=== PATIENT | male | born 1940 | race Caucasian/White ===

== ENCOUNTER 2022-01-18 16:00 | Inpatient (IN) | payer OTHER, BC ==
[2022-01-18 16:20] VITALS: BMI 28.3
[2022-01-18] MEDS ORDERED: SODIUM CHLORIDE 2,926 ML IV ONE (16:44)
[2022-01-18] MEDS ORDERED: VANCOMYCIN 1 GM in D5W (PRE-DOCKED) 1,000 MG/250 ML IVPB ONE (16:48)
[2022-01-18] MEDS ORDERED: PIPERACILLIN/TAZOB 3.375 GM 3.375 GM in DEXTROSE 5%-WATER - 50 ML IVPB ONE (16:48)
[2022-01-18] MEDS ORDERED: ACETAMINOPHEN 1000 MG/100 ML BAG IVPB ONE (16:57)
[2022-01-18] MEDS ORDERED: ACETAMINOPHEN INJECTION 100 ML IVPB ONE (17:59)
[2022-01-18 18:03] LABS: VENOUS BASE EXCESS -6.5 mmol/L (-2-2); VENOUS O2 SATURATION 36.4 % (70-80); VENOUS PCO2 39.7 mmHg (38-52); VENOUS PH 7.305 (7.310-7.410)
[2022-01-18 18:09] LABS: BASO % 0.6 % (0-2.0); EOS % 0.2 % (0-4.5); HEMOGLOBIN 11.5 GM/dL (11.7-16.9); LYMPH % 4.8 % (8-40); MCH 33.4 pg (25.7-33.7); MCHC 33.7 g/dl (32.0-35.9); MEAN PLT VOLUME 8.3 fl (7.5-11.1); MONO % 7.1 % (3.8-10.2); NEUT % 87.3 % (42.8-82.8); PLATELET COUNT 123 10^3/uL (134-434); RBC 3.43 M/mm3 (4.00-5.60); RDW 13.9 % (11.9-15.9); WHITE BLOOD COUNT 7.2 K/mm3 (4.0-10.0)
[2022-01-18] MEDS ORDERED: VANCOMYCIN/WATER FOR INJ (PEG) 1,000 MG/200 ML BAG IVPB ONE (18:10)
[2022-01-18] MEDS ORDERED: PIPERACILLIN/TAZOB 3.375 GM 3.375 GM/50 ML BAG IVPB ONE (18:11)
[2022-01-18 18:16] LABS: INR 1.29 (0.83-1.09); PROTHROMBIN TIME (PATIENT) 14.9 SEC (9.7-13.0)
[2022-01-18 18:19] LABS: ACTIVATED PTT 26.8 SECONDS (25.2-36.5)
[2022-01-18 18:29] LABS: CHLORIDE 110 mmol/L (98-107); SODIUM 142 mmol/L (136-145)
[2022-01-18 18:31] LABS: CALCIUM 8.7 mg/dL (8.5-10.1)
[2022-01-18 18:33] LABS: ALBUMIN 3.2 g/dl (3.4-5.0); ANION GAP 9 MMOL/L (8-16); BLOOD UREA NITROGEN 29.8 mg/dL (7-18); CO2 23 mmol/L (21-32); GLUCOSE,RANDOM 127 mg/dL (74-106)
[2022-01-18 18:36] LABS: CREATININE 2.5 mg/dL (0.55-1.3); SGOT/AST 94 U/L (15-37); SGPT/ALT 53 U/L (13-61)
[2022-01-18 18:37] LABS: BILIRUBIN,TOTAL 1.9 mg/dL (0.2-1)
[2022-01-18 18:38] LABS: TOT PROT 6.5 g/dl (6.4-8.2)
[2022-01-18 18:39] LABS: ALK PHOS 123 U/L (45-117)
[2022-01-18 18:48] LABS: LACTIC ACID 3.5 mmol/L (0.4-2.0)
[2022-01-18 20:08] LABS: LACTIC ACID 2.3 mmol/L (0.4-2.0)
[2022-01-18] MEDS ORDERED: NOREPINEPHRINE BITARTRATE 16,000 MCG in SODIUM CHLORIDE 484 ML IV SCH (20:45)
[2022-01-18] MEDS ORDERED: HEPARIN NA (PORCINE) 5,000 UNITS/ML 1ML VIAL IVPUSH PRN ×2 (23:22)
[2022-01-18] MEDS ORDERED: ASPIRIN 81 MG CHEWABLE TABLETS PO ONE (23:24)
[2022-01-18] MEDS ORDERED: ASPIRIN 325 MG TABLET ONE (23:43)
[2022-01-18] MEDS ORDERED: HEPARIN INFUSION - 25,000 UNITS/500 ML INFUS.BAG IVPB ONE (23:43)
[2022-01-18] MEDS: HEPARIN - 25,000 UNIT in SODIUM CHLORIDE 495 ML IV SCH (23:54)
[2022-01-19 00:14] LABS: EPI CELLS 9 /uL (0-25.1); HYALINE CASTS 6 /uL (0-3.1); URINE APPEARANCE TURBID; URINE BACTERIA 4 /uL (0-1359); URINE BILIRUBIN NEGATIVE (NEGATIVE); URINE COLOR DK YELLOW; URINE GLUCOSE (UA) 2+ (NEGATIVE); URINE KETONE TRACE (NEGATIVE); URINE LEUK ESTERASE TRACE (NEGATIVE); URINE NITRITE NEGATIVE (NEGATIVE); URINE PROTEIN 2+ (NEGATIVE); URINE UROBILINOGEN 0.2 mg/dL (0.2-1.0); URINE WBC 44 /uL (0-25.8)
[2022-01-19 00:15] LABS: URINE RBC 15 /uL (0-23.9)
[2022-01-19] MEDS ORDERED: REMDESIVIR 200 MG in SODIUM CHLORIDE 250 ML IVPB ONE (03:37)
[2022-01-19] MEDS ORDERED: PIPERACILLIN/TAZOB 3.375 GM 3.375 GM in DEXTROSE 5%-WATER - 50 ML IVPB SCH ×2 (04:00→05:00)
[2022-01-19] MEDS ORDERED: PIPERACILLIN/TAZOB 3.375 GM 3.375 GM/50 ML BAG IVPB ONE ×2 (04:22→09:02)
[2022-01-19] MEDS ORDERED: PIPERACILLIN/TAZOB 3.375 GM 3.375 GM in DEXTROSE 5%-WATER - 50 ML IVPB ONE ×2 (07:15→12:15)
[2022-01-19] MEDS ORDERED: PATIENT'S OWN MEDICATION (NON-FORMULARY) (Cyanocobalamin/Folic Acid [B12-Folic Acid 2500-4 PO SCH (07:30)
[2022-01-19] MEDS: INSULIN SLIDING SCALE (NOVOLOG) 1 VIAL SQ SCH ×4 (07:30→22:27)
[2022-01-19] MEDS ORDERED: PATIENT'S OWN MEDICATION (NON-FORMULARY) (Denosumab 60 MG/ML Disp.Syrin) SQ SCH (07:30)
[2022-01-19 08:11] LABS: HEMATOCRIT 32.2 % (35.4-49); HEMOGLOBIN 10.7 GM/dL (11.7-16.9); MCH 32.9 pg (25.7-33.7); MCHC 33.3 g/dl (32.0-35.9); MEAN PLT VOLUME 8.4 fl (7.5-11.1); PLATELET COUNT 109 10^3/uL (134-434); RBC 3.26 M/mm3 (4.00-5.60); RDW 13.8 % (11.9-15.9); WHITE BLOOD COUNT 5.1 K/mm3 (4.0-10.0)
[2022-01-19] MEDS ORDERED: LEVOTHYROXINE NA 50 MCG TABLET (FP) PO SCH (08:15)
[2022-01-19 08:25] LABS: CALCIUM 7.9 mg/dL (8.5-10.1)
[2022-01-19 08:26] LABS: ALBUMIN 2.8 g/dl (3.4-5.0); BLOOD UREA NITROGEN 33.4 mg/dL (7-18); MAGNESIUM 2.2 mg/dL (1.8-2.4)
[2022-01-19 08:29] LABS: PHOSPHOROUS 4.3 mg/dL (2.5-4.9)
[2022-01-19 08:30] LABS: BILIRUBIN,TOTAL 1.5 mg/dL (0.2-1); CREATININE 2.7 mg/dL (0.55-1.3); TOT PROT 5.7 g/dl (6.4-8.2)
[2022-01-19] MEDS ORDERED: FOLIC ACID 1 MG TABLET (FP) ONE (08:58)
[2022-01-19] MEDS ORDERED: ASPIRIN 81 MG CHEWABLE TABLETS ONE (08:58)
[2022-01-19] MEDS ORDERED: THIAMINE HCL 100 MG TABLET (FP) ONE (08:58)
[2022-01-19] MEDS ORDERED: MULTIVITAMINS (DAILY MVI) TABLET (FP) ONE (08:59)
[2022-01-19] MEDS ORDERED: DULoxetine HCL 30 MG CAPSULE.DR PO ONE (08:59)
[2022-01-19] MEDS ORDERED: LEVOTHYROXINE NA 50 MCG TABLET (FP) ONE (08:59)
[2022-01-19] MEDS ORDERED: VANCOMYCIN/WATER 1250 MG 1,250 MG/250 ML BAG IVPB ONE (09:00)
[2022-01-19] MEDS ORDERED: DHA PO SCH (10:00)
[2022-01-19] MEDS ORDERED: LUT PO SCH (10:00)
[2022-01-19] MEDS ORDERED: ZEA PO SCH (10:00)
[2022-01-19] MEDS ORDERED: EPA PO SCH (10:00)
[2022-01-19] MEDS ORDERED: [UNRECOGNIZED DRUG - OTHER] PO SCH (10:00)
[2022-01-19] MEDS ORDERED: ATORVASTATIN CA 40 MG TABLET (FP) PO SCH (10:00)
[2022-01-19] MEDS ORDERED: MV MN PO SCH (10:00)
[2022-01-19] MEDS ORDERED: VANCOMYCIN/WATER 1,250 MG/250 ML BAG IVPB ONE ×2 (10:00→22:00)
[2022-01-19] MEDS ORDERED: FISH PO SCH (10:00)
[2022-01-19] MEDS ORDERED: THIAMINE HCL 100 MG TABLET (FP) PO SCH (10:00)
[2022-01-19] MEDS ORDERED: PATIENT'S OWN MEDICATION (NON-FORMULARY) (Dapagliflozin Propanediol 5 MG Tablet) PO SCH (10:00)
[2022-01-19] MEDS ORDERED: CHOLECALCIFEROL (VIT D3) 1,000 UNIT (25 MCG) TABLET ONE (10:20)
[2022-01-19] MEDS: MULTIVITAMINS (DAILY MVI) TABLET (FP) PO SCH (10:38)
[2022-01-19] MEDS: CHOLECALCIFEROL (VIT D3) 1,000 UNIT (25 MCG) TABLET PO SCH (10:38)
[2022-01-19] MEDS: FOLIC ACID 1 MG TABLET (FP) PO SCH (10:38)
[2022-01-19] MEDS: DULoxetine HCL 30 MG CAPSULE.DR PO SCH (10:38)
[2022-01-19] MEDS: PRAMIPEXOLE DIHYDROCHLORIDE 0.5 MG TABLET PO SCH (10:38)
[2022-01-19] MEDS: ASPIRIN 81 MG CHEWABLE TABLETS PO SCH (10:38)
[2022-01-19] MEDS ORDERED: LORazepam 1 MG TABLET PO PRN (11:24)
[2022-01-19] MEDS ORDERED: THIAMINE HCL 200 MG/2 ML VIAL ONE (11:58)
[2022-01-19] MEDS: KETOCONAZOLE 2% TOPICAL CREAM 15 GM TUBE TP SCH (12:03)
[2022-01-19] MEDS: THIAMINE HCL 200 MG/2 ML VIAL IVPB SCH (12:17)
[2022-01-19] MEDS ORDERED: LACTATED RINGERS SOLUTION 1,000 ML/1,000 ML INFUS.BAG IV SCH (14:30)
[2022-01-19 14:45] LABS: RETICULOCYTES 1.17 % (0.5-1.5)
[2022-01-19] MEDS ORDERED: REPAGLINIDE 0.5 MG TABLET (FP) PO SCH (16:30)
[2022-01-19] MEDS ORDERED: SODIUM CHLORIDE 0.45% 1,000 ML IV SCH (17:15)
[2022-01-19] MEDS ORDERED: ATORVASTATIN CA 10 MG TABLET (FP) PO SCH (22:00)
[2022-01-19] MEDS: PIPERACILLIN/TAZOB 3.375 GM 3.375 GM in DEXTROSE 5%-WATER - 50 ML IVPB SCH (22:05)
[2022-01-19] MEDS: OMEGA-3 ACID ETHYL ESTERS (FATTY-ACIDS) 1 GM CAPSULE (FP) PO SCH (22:16)
[2022-01-19] MEDS: MOMETASONE FUROATE 220 MCG/IH INHALER IH SCH (22:47)
[2022-01-20] MEDS: PIPERACILLIN/TAZOB 3.375 GM 3.375 GM in DEXTROSE 5%-WATER - 50 ML IVPB SCH ×2 (02:10→10:16)
[2022-01-20] MEDS: HEPARIN - 25,000 UNIT in SODIUM CHLORIDE 495 ML IV SCH (05:34)
[2022-01-20 06:15] LABS: HEMATOCRIT 31.4 % (35.4-49); HEMOGLOBIN 10.6 GM/dL (11.7-16.9); MCH 33.2 pg (25.7-33.7); MCHC 33.7 g/dl (32.0-35.9); MEAN CELL VOLUME 98.6 fl (80-96); MEAN PLT VOLUME 8.6 fl (7.5-11.1); PLATELET COUNT 117 10^3/uL (134-434); RBC 3.19 M/mm3 (4.00-5.60); RDW 14.1 % (11.9-15.9); WHITE BLOOD COUNT 4.5 K/mm3 (4.0-10.0)
[2022-01-20] MEDS: INSULIN SLIDING SCALE (NOVOLOG) 1 VIAL SQ SCH ×4 (06:17→21:01)
[2022-01-20] MEDS: LEVOTHYROXINE NA 75 MCG TABLET (FP) PO SCH (06:18)
[2022-01-20 08:01] LABS: ALBUMIN 2.4 g/dl (3.4-5.0); BILIRUBIN,TOTAL 0.8 mg/dL (0.2-1); BLOOD UREA NITROGEN 36.9 mg/dL (7-18); CALCIUM 7.9 mg/dL (8.5-10.1); CREATININE 2.7 mg/dL (0.55-1.3); MAGNESIUM 2.1 mg/dL (1.8-2.4); PHOSPHOROUS 4.2 mg/dL (2.5-4.9); TOT PROT 5.2 g/dl (6.4-8.2)
[2022-01-20] MEDS: DULoxetine HCL 30 MG CAPSULE.DR PO SCH (10:17)
[2022-01-20] MEDS: CHOLECALCIFEROL (VIT D3) 1,000 UNIT (25 MCG) TABLET PO SCH (10:17)
[2022-01-20] MEDS: MULTIVITAMINS (DAILY MVI) TABLET (FP) PO SCH (10:17)
[2022-01-20] MEDS: ASPIRIN 81 MG CHEWABLE TABLETS PO SCH (10:18)
[2022-01-20] MEDS: FOLIC ACID 1 MG TABLET (FP) PO SCH (10:18)
[2022-01-20] MEDS: PRAMIPEXOLE DIHYDROCHLORIDE 0.5 MG TABLET PO SCH (10:18)
[2022-01-20] MEDS: KETOCONAZOLE 2% TOPICAL CREAM 15 GM TUBE TP SCH (10:18)
[2022-01-20] MEDS: THIAMINE HCL 200 MG/2 ML VIAL IVPB SCH (10:19)
[2022-01-20] MEDS: FLUTICASONE PROP 0.05% 16 GM NASAL SPRAY NS SCH (11:56)
[2022-01-20] MEDS: LACTATED RINGERS SOLUTION 1,000 ML/1,000 ML INFUS.BAG IV SCH ×2 (17:44→21:02)
[2022-01-20] MEDS: PIPERACILLIN/TAZOB 2.25 GM 2.25 GM in DEXTROSE 5%-WATER - 50 ML IVPB SCH (20:54)
[2022-01-20] MEDS: OMEGA-3 ACID ETHYL ESTERS (FATTY-ACIDS) 1 GM CAPSULE (FP) PO SCH (21:01)
[2022-01-20] MEDS: MOMETASONE FUROATE 220 MCG/IH INHALER IH SCH (21:01)
[2022-01-21] MEDS: PIPERACILLIN/TAZOB 2.25 GM 2.25 GM in DEXTROSE 5%-WATER - 50 ML IVPB SCH ×2 (02:28→09:20)
[2022-01-21] MEDS: HEPARIN - 25,000 UNIT in SODIUM CHLORIDE 495 ML IV SCH ×3 (02:28→23:30)
[2022-01-21] MEDS: INSULIN SLIDING SCALE (NOVOLOG) 1 VIAL SQ SCH ×4 (06:27→21:55)
[2022-01-21] MEDS: LEVOTHYROXINE NA 75 MCG TABLET (FP) PO SCH (06:27)
[2022-01-21 07:40] LABS: HEMATOCRIT 29.7 % (35.4-49); MCH 33.1 pg (25.7-33.7); MCHC 33.8 g/dl (32.0-35.9); MEAN CELL VOLUME 98.1 fl (80-96); MEAN PLT VOLUME 8.5 fl (7.5-11.1); PLATELET COUNT 119 10^3/uL (134-434); RBC 3.03 M/mm3 (4.00-5.60); RDW 14.1 % (11.9-15.9); WHITE BLOOD COUNT 3.4 K/mm3 (4.0-10.0)
[2022-01-21 08:02] LABS: CALCIUM 7.6 mg/dL (8.5-10.1)
[2022-01-21 08:03] LABS: ALBUMIN 2.2 g/dl (3.4-5.0); BLOOD UREA NITROGEN 34.3 mg/dL (7-18)
[2022-01-21 08:06] LABS: CREATININE 2.6 mg/dL (0.55-1.3)
[2022-01-21 08:08] LABS: BILIRUBIN,TOTAL 0.9 mg/dL (0.2-1); TOT PROT 4.8 g/dl (6.4-8.2)
[2022-01-21] MEDS: CHOLECALCIFEROL (VIT D3) 1,000 UNIT (25 MCG) TABLET PO SCH (09:20)
[2022-01-21] MEDS: ASPIRIN 81 MG CHEWABLE TABLETS PO SCH (09:20)
[2022-01-21] MEDS: DULoxetine HCL 30 MG CAPSULE.DR PO SCH (09:20)
[2022-01-21] MEDS: MULTIVITAMINS (DAILY MVI) TABLET (FP) PO SCH (09:20)
[2022-01-21] MEDS: FOLIC ACID 1 MG TABLET (FP) PO SCH (09:21)
[2022-01-21] MEDS: PRAMIPEXOLE DIHYDROCHLORIDE 0.5 MG TABLET PO SCH (09:21)
[2022-01-21] MEDS: FLUTICASONE PROP 0.05% 16 GM NASAL SPRAY NS SCH (09:35)
[2022-01-21] MEDS: KETOCONAZOLE 2% TOPICAL CREAM 15 GM TUBE TP SCH (10:40)
[2022-01-21] MEDS: THIAMINE HCL 200 MG/2 ML VIAL IVPB SCH (12:26)
[2022-01-21] MEDS: LACTATED RINGERS SOLUTION 1,000 ML/1,000 ML INFUS.BAG IV SCH (13:44)
[2022-01-21] MEDS: MOMETASONE FUROATE 220 MCG/IH INHALER IH SCH (21:54)
[2022-01-21] MEDS: CEFUROXIME AXETIL 250 MG TABLET PO SCH (21:54)
[2022-01-21] MEDS: OMEGA-3 ACID ETHYL ESTERS (FATTY-ACIDS) 1 GM CAPSULE (FP) PO SCH (21:55)
[2022-01-22] MEDS: LEVOTHYROXINE NA 75 MCG TABLET (FP) PO SCH (06:23)
[2022-01-22] MEDS: INSULIN SLIDING SCALE (NOVOLOG) 1 VIAL SQ SCH ×4 (06:23→21:31)
[2022-01-22] MEDS: ASPIRIN 81 MG CHEWABLE TABLETS PO SCH (09:23)
[2022-01-22] MEDS: CHOLECALCIFEROL (VIT D3) 1,000 UNIT (25 MCG) TABLET PO SCH (09:23)
[2022-01-22] MEDS: FOLIC ACID 1 MG TABLET (FP) PO SCH (09:23)
[2022-01-22] MEDS: MULTIVITAMINS (DAILY MVI) TABLET (FP) PO SCH (09:23)
[2022-01-22] MEDS: DULoxetine HCL 30 MG CAPSULE.DR PO SCH (09:23)
[2022-01-22] MEDS: THIAMINE HCL 200 MG/2 ML VIAL IVPB SCH (09:24)
[2022-01-22] MEDS: KETOCONAZOLE 2% TOPICAL CREAM 15 GM TUBE TP SCH (09:25)
[2022-01-22] MEDS: FLUTICASONE PROP 0.05% 16 GM NASAL SPRAY NS SCH (09:26)
[2022-01-22] MEDS: PRAMIPEXOLE DIHYDROCHLORIDE 0.5 MG TABLET PO SCH (09:26)
[2022-01-22] MEDS: CEFUROXIME AXETIL 250 MG TABLET PO SCH ×2 (09:27→21:20)
[2022-01-22 10:42] LABS: HEMATOCRIT 29.5 % (35.4-49); MCH 33.2 pg (25.7-33.7); MCHC 33.7 g/dl (32.0-35.9); MEAN CELL VOLUME 98.4 fl (80-96); PLATELET COUNT 131 10^3/uL (134-434); RDW 13.8 % (11.9-15.9); WHITE BLOOD COUNT 3.7 K/mm3 (4.0-10.0)
[2022-01-22 11:07] LABS: BLOOD UREA NITROGEN 29.3 mg/dL (7-18); CALCIUM 8.1 mg/dL (8.5-10.1)
[2022-01-22 11:10] LABS: CREATININE 2.4 mg/dL (0.55-1.3)
[2022-01-22] MEDS: LACTATED RINGERS SOLUTION 1,000 ML/1,000 ML INFUS.BAG IV SCH (15:26)
[2022-01-22] MEDS: HEPARIN NA (PORCINE) 5,000 UNITS/ML 1ML VIAL SQ SCH ×2 (15:26→21:20)
[2022-01-22] MEDS: MOMETASONE FUROATE 220 MCG/IH INHALER IH SCH (21:20)
[2022-01-22] MEDS: OMEGA-3 ACID ETHYL ESTERS (FATTY-ACIDS) 1 GM CAPSULE (FP) PO SCH (21:20)
[2022-01-23] MEDS: HEPARIN NA (PORCINE) 5,000 UNITS/ML 1ML VIAL SQ SCH ×3 (06:27→21:37)
[2022-01-23] MEDS: LEVOTHYROXINE NA 75 MCG TABLET (FP) PO SCH (06:28)
[2022-01-23] MEDS: INSULIN SLIDING SCALE (NOVOLOG) 1 VIAL SQ SCH ×4 (06:33→21:43)
[2022-01-23 07:32] LABS: HEMATOCRIT 29.1 % (35.4-49); HEMOGLOBIN 9.8 GM/dL (11.7-16.9); MCH 33.3 pg (25.7-33.7); MCHC 33.8 g/dl (32.0-35.9); MEAN CELL VOLUME 98.5 fl (80-96); MEAN PLT VOLUME 8.2 fl (7.5-11.1); PLATELET COUNT 138 10^3/uL (134-434); RBC 2.95 M/mm3 (4.00-5.60); RDW 13.8 % (11.9-15.9); WHITE BLOOD COUNT 3.9 K/mm3 (4.0-10.0)
[2022-01-23 07:59] LABS: ALBUMIN 2.1 g/dl (3.4-5.0); BLOOD UREA NITROGEN 28.8 mg/dL (7-18); CALCIUM 8.2 mg/dL (8.5-10.1); MAGNESIUM 1.8 mg/dL (1.8-2.4)
[2022-01-23 08:02] LABS: CREATININE 2.1 mg/dL (0.55-1.3); PHOSPHOROUS 3.5 mg/dL (2.5-4.9)
[2022-01-23 08:03] LABS: TOT PROT 4.8 g/dl (6.4-8.2)
[2022-01-23] MEDS: CHOLECALCIFEROL (VIT D3) 1,000 UNIT (25 MCG) TABLET PO SCH (10:19)
[2022-01-23] MEDS: DULoxetine HCL 30 MG CAPSULE.DR PO SCH (10:19)
[2022-01-23] MEDS: MULTIVITAMINS (DAILY MVI) TABLET (FP) PO SCH (10:20)
[2022-01-23] MEDS: ASPIRIN 81 MG CHEWABLE TABLETS PO SCH (10:20)
[2022-01-23] MEDS: FOLIC ACID 1 MG TABLET (FP) PO SCH (10:20)
[2022-01-23] MEDS: PRAMIPEXOLE DIHYDROCHLORIDE 0.5 MG TABLET PO SCH (10:20)
[2022-01-23] MEDS: CEFUROXIME AXETIL 250 MG TABLET PO SCH ×2 (10:20→21:37)
[2022-01-23] MEDS: THIAMINE HCL 200 MG/2 ML VIAL IVPB SCH (10:27)
[2022-01-23] MEDS: FLUTICASONE PROP 0.05% 16 GM NASAL SPRAY NS SCH (10:27)
[2022-01-23] MEDS: KETOCONAZOLE 2% TOPICAL CREAM 15 GM TUBE TP SCH (10:27)
[2022-01-23] MEDS: SODIUM CHLORIDE 0.45% 1,000 ML IV SCH (13:43)
[2022-01-23] MEDS: OMEGA-3 ACID ETHYL ESTERS (FATTY-ACIDS) 1 GM CAPSULE (FP) PO SCH (21:37)
[2022-01-23] MEDS: MOMETASONE FUROATE 220 MCG/IH INHALER IH SCH (21:37)
[2022-01-24] MEDS: SODIUM CHLORIDE 0.45% 1,000 ML IV SCH ×2 (03:32→17:21)
[2022-01-24] MEDS: HEPARIN NA (PORCINE) 5,000 UNITS/ML 1ML VIAL SQ SCH ×3 (06:03→21:48)
[2022-01-24] MEDS: LEVOTHYROXINE NA 75 MCG TABLET (FP) PO SCH (06:03)
[2022-01-24] MEDS: INSULIN SLIDING SCALE (NOVOLOG) 1 VIAL SQ SCH ×4 (06:03→21:48)
[2022-01-24 09:30] LABS: HEMATOCRIT 29.8 % (35.4-49); HEMOGLOBIN 10.2 GM/dL (11.7-16.9); MCH 33.6 pg (25.7-33.7); MCHC 34.2 g/dl (32.0-35.9); MEAN CELL VOLUME 98.3 fl (80-96); MEAN PLT VOLUME 7.9 fl (7.5-11.1); PLATELET COUNT 153 10^3/uL (134-434); RBC 3.03 M/mm3 (4.00-5.60); RDW 13.9 % (11.9-15.9); WHITE BLOOD COUNT 4.3 K/mm3 (4.0-10.0)
[2022-01-24] MEDS: ASPIRIN 81 MG CHEWABLE TABLETS PO SCH (09:45)
[2022-01-24] MEDS: DULoxetine HCL 30 MG CAPSULE.DR PO SCH (09:45)
[2022-01-24] MEDS: MULTIVITAMINS (DAILY MVI) TABLET (FP) PO SCH (09:45)
[2022-01-24] MEDS: CEFUROXIME AXETIL 250 MG TABLET PO SCH ×2 (09:45→21:48)
[2022-01-24] MEDS: CHOLECALCIFEROL (VIT D3) 1,000 UNIT (25 MCG) TABLET PO SCH (09:45)
[2022-01-24] MEDS: THIAMINE HCL 200 MG/2 ML VIAL IVPB SCH (09:46)
[2022-01-24] MEDS: FOLIC ACID 1 MG TABLET (FP) PO SCH (09:46)
[2022-01-24] MEDS: PRAMIPEXOLE DIHYDROCHLORIDE 0.5 MG TABLET PO SCH (09:48)
[2022-01-24] MEDS: FLUTICASONE PROP 0.05% 16 GM NASAL SPRAY NS SCH (09:50)
[2022-01-24 10:21] LABS: CALCIUM 8.6 mg/dL (8.5-10.1)
[2022-01-24 10:22] LABS: ALBUMIN 2.4 g/dl (3.4-5.0); BLOOD UREA NITROGEN 23.4 mg/dL (7-18); MAGNESIUM 1.6 mg/dL (1.8-2.4)
[2022-01-24 10:23] LABS: BILIRUBIN,TOTAL 1.1 mg/dL (0.2-1); TOT PROT 5.5 g/dl (6.4-8.2)
[2022-01-24 10:25] LABS: CREATININE 1.9 mg/dL (0.55-1.3)
[2022-01-24] MEDS: KETOCONAZOLE 2% TOPICAL CREAM 15 GM TUBE TP SCH (10:40)
[2022-01-24] MEDS ORDERED: MAGNESIUM SULF 50% (8.12 MEQ/2 ML-1 GM VIAL) IVPB ONE (16:17)
[2022-01-24] MEDS ORDERED: MAGNESIUM 2GM/50ML STERILE WATER IVPB IVPB ONE ×2 (16:32→17:00)
[2022-01-24] MEDS: OMEGA-3 ACID ETHYL ESTERS (FATTY-ACIDS) 1 GM CAPSULE (FP) PO SCH (21:49)
[2022-01-24] MEDS: MOMETASONE FUROATE 220 MCG/IH INHALER IH SCH (21:49)
[2022-01-25] MEDS: HEPARIN NA (PORCINE) 5,000 UNITS/ML 1ML VIAL SQ SCH (06:40)
[2022-01-25] MEDS: LEVOTHYROXINE NA 75 MCG TABLET (FP) PO SCH (06:41)
[2022-01-25] MEDS: INSULIN SLIDING SCALE (NOVOLOG) 1 VIAL SQ SCH (06:41)
[2022-01-25 07:05] VITALS: RESP 16
[2022-01-25 08:28] LABS: HEMATOCRIT 29.4 % (35.4-49); HEMOGLOBIN 10.2 GM/dL (11.7-16.9); MCH 33.8 pg (25.7-33.7); MCHC 34.6 g/dl (32.0-35.9); MEAN CELL VOLUME 97.5 fl (80-96); MEAN PLT VOLUME 7.7 fl (7.5-11.1); PLATELET COUNT 173 10^3/uL (134-434); RBC 3.02 M/mm3 (4.00-5.60); RDW 13.9 % (11.9-15.9); WHITE BLOOD COUNT 4.4 K/mm3 (4.0-10.0)
[2022-01-25 08:53] LABS: CALCIUM 8.6 mg/dL (8.5-10.1)
[2022-01-25 08:54] LABS: ALBUMIN 2.5 g/dl (3.4-5.0); BLOOD UREA NITROGEN 22.1 mg/dL (7-18)
[2022-01-25 08:55] LABS: MAGNESIUM 1.9 mg/dL (1.8-2.4)
[2022-01-25 08:57] LABS: CREATININE 1.8 mg/dL (0.55-1.3); PHOSPHOROUS 3.1 mg/dL (2.5-4.9)
[2022-01-25 08:58] LABS: BILIRUBIN,TOTAL 1.2 mg/dL (0.2-1)
[2022-01-25 08:59] LABS: TOT PROT 5.6 g/dl (6.4-8.2)
[2022-01-25] MEDS: CEFUROXIME AXETIL 250 MG TABLET PO SCH (09:11)
[2022-01-25] MEDS: DULoxetine HCL 30 MG CAPSULE.DR PO SCH (09:12)
[2022-01-25] MEDS: FOLIC ACID 1 MG TABLET (FP) PO SCH (09:12)
[2022-01-25] MEDS: MULTIVITAMINS (DAILY MVI) TABLET (FP) PO SCH (09:12)
[2022-01-25] MEDS: CHOLECALCIFEROL (VIT D3) 1,000 UNIT (25 MCG) TABLET PO SCH (09:12)
[2022-01-25] MEDS: THIAMINE HCL 200 MG/2 ML VIAL IVPB SCH ×2 (09:13→09:25)
[2022-01-25] MEDS: KETOCONAZOLE 2% TOPICAL CREAM 15 GM TUBE TP SCH (09:13)
[2022-01-25] MEDS: PRAMIPEXOLE DIHYDROCHLORIDE 0.5 MG TABLET PO SCH (09:13)
[2022-01-25] MEDS: FLUTICASONE PROP 0.05% 16 GM NASAL SPRAY NS SCH (09:14)
[2022-01-25] MEDS: ASPIRIN 81 MG CHEWABLE TABLETS PO SCH (09:15)
[2022-01-25 11:06] VITALS: BP 138/70; PULSE 83; TEMP 98
== END 2022-01-25 13:23 | disposition home or self-care (01) | DRG 871 ==
LOC: JER 16:00 → JERBED 16:56 → J4S 01-19 19:55
PROVIDERS: ADMIT Hospitalist; ATTEND Internal Medicine
PROC: XW033E5 Introduction of Remdesivir Anti-infective into Peripheral Vein, Percutaneous Approach, New Technology Group 5 (ICD-10-PCS; principal; 2022-01-19)
DX: A41.89 Other specified sepsis (principal); I21.4 Non-ST elevation (NSTEMI) myocardial infarction; R65.21 Severe sepsis with septic shock; U07.1 COVID-19; J12.82 Pneumonia due to coronavirus disease 2019; M62.82 Rhabdomyolysis; E87.2 Acidosis; N17.9 Acute kidney failure, unspecified; E78.5 Hyperlipidemia, unspecified; I10 Essential (primary) hypertension; E03.9 Hypothyroidism, unspecified; E11.9 Type 2 diabetes mellitus without complications; D64.9 Anemia, unspecified; R79.89 Other specified abnormal findings of blood chemistry; G25.81 Restless legs syndrome; J32.8 Other chronic sinusitis; I95.9 Hypotension, unspecified; R00.0 Tachycardia, unspecified; R50.9 Fever, unspecified; W18.39XA Other fall on same level, initial encounter; Y92.89 Other specified places as the place of occurrence of the external cause
CPT/HCPCS: 0241U-QW; 36415; 71045-TC-FY; 76705-TC; 80048; 80053; 80061; 81003; 82272; 82550; 82553; 82570; 82607; 82728; 82746; 82803; 82962; 83036; 83540; 83550; 83605; 83615; 83735; 84100; 84300; 84439; 84443; 84466; 84484; 85025; 85027; 85045; 85610; 85730; 86140; 86850; 86900; 86901; 87040; 87086; 93005; 93010; 93306-TC; 97116-GP; 97161-GP; 99285-25; C9399; C9803-CS; J1644; U0003; U0005

== ENCOUNTER 2023-08-28 13:29 | Inpatient (IN) | payer OTHER, BC ==
[2023-08-28] MEDS ORDERED: PIPERACILLIN/TAZOB 4.5 GM 4.5 GM/100 ML BAG IVPB ONE (14:52)
[2023-08-28] MEDS ORDERED: ACETAMINOPHEN INJECTION 100 ML IVPB ONE (14:52)
[2023-08-28 14:53] LABS: BASO % 0.7 % (0-2.0); EOS % 3.8 % (0-4.5); HEMATOCRIT 33.3 % (35.4-49); HEMOGLOBIN 10.9 GM/dL (11.7-16.9); LYMPH % 12.6 % (8-40); MCH 33.5 pg (25.7-33.7); MCHC 32.8 g/dl (32.0-35.9); MEAN CELL VOLUME 102.2 fl (80-96); MEAN PLT VOLUME 7.3 fl (7.5-11.1); MONO % 9.9 % (3.8-10.2); PLATELET COUNT 162 10^3/uL (134-434); RBC 3.25 M/mm3 (4.00-5.60); RDW 13.5 % (11.9-15.9); WHITE BLOOD COUNT 5.7 K/mm3 (4.0-10.0)
[2023-08-28] MEDS: PIPERACILLIN/TAZOB 4.5 GM 4.5 GM in DEXTROSE 5%-WATER 100 ML IVPB ONE (14:59)
[2023-08-28 15:21] LABS: POTASSIUM 4.9 mmol/L (3.5-5.1)
[2023-08-28 15:23] LABS: CALCIUM 8.9 mg/dL (8.5-10.1)
[2023-08-28 15:25] LABS: ALBUMIN 2.9 g/dl (3.4-5.0); BLOOD UREA NITROGEN 54.9 mg/dL (7-18)
[2023-08-28 15:27] LABS: CREATININE 2.2 mg/dL (0.55-1.3)
[2023-08-28 15:29] LABS: TOT PROT 6.2 g/dl (6.4-8.2)
[2023-08-28] MEDS: ACETAMINOPHEN 1000 MG/100 ML BAG IVPB ONE (15:39)
[2023-08-28 15:41] LABS: ERYTHROCYTE SEDIMENTATION RATE 92 mm/hr (0-20)
[2023-08-28] MEDS ORDERED: VANCOMYCIN 1 GRAM (PRE-DOCKED) 1,000 MG/250 ML BAG IVPB ONE (16:00)
[2023-08-28] MEDS: VANCOMYCIN 1,000 MG in DEXTROSE 5%-WATER - 250 ML IVPB ONE (16:07)
[2023-08-28] MEDS: INSULIN ASPART SLIDING SCALE (NOVOLOG) 1 VIAL SQ SCH (19:40)
[2023-08-28] MEDS: ACETAMINOPHEN 500 MG TABLET (FP) PO PRN (22:59)
[2023-08-28] MEDS: HEPARIN NA (PORCINE) 5,000 UNITS/ML 1ML VIAL SQ SCH (23:00)
[2023-08-29] MEDS: VANCOMYCIN/WATER FOR INJ (PEG) 1,000 MG/200 ML BAG IVPB SCH (04:16)
[2023-08-29] MEDS ORDERED: VANCOMYCIN 1,000 MG in DEXTROSE 5%-WATER - 250 ML IVPB SCH ×2 (06:00→15:00)
[2023-08-29 09:32] LABS: BASO % 0.9 % (0-2.0); HEMATOCRIT 36.1 % (35.4-49); HEMOGLOBIN 11.8 GM/dL (11.7-16.9); LYMPH % 14.7 % (8-40); MCH 33.2 pg (25.7-33.7); MCHC 32.7 g/dl (32.0-35.9); MEAN CELL VOLUME 101.5 fl (80-96); MEAN PLT VOLUME 7.5 fl (7.5-11.1); MONO % 6.5 % (3.8-10.2); NEUT % 72.9 % (42.8-82.8); PLATELET COUNT 186 10^3/uL (134-434); RBC 3.56 M/mm3 (4.00-5.60); RDW 13.4 % (11.9-15.9); WHITE BLOOD COUNT 5.3 K/mm3 (4.0-10.0)
[2023-08-29 10:14] LABS: POTASSIUM 4.8 mmol/L (3.5-5.1)
[2023-08-29 10:31] LABS: CALCIUM 8.6 mg/dL (8.5-10.1)
[2023-08-29 10:32] LABS: BLOOD UREA NITROGEN 47.8 mg/dL (7-18)
[2023-08-29 10:35] LABS: CREATININE 2.2 mg/dL (0.55-1.3)
[2023-08-29 10:46] LABS: N-TERMINAL BNP 303.1 pg/ml (5-450)
[2023-08-29] MEDS: FUROSEMIDE 40 MG/4 ML INJECTABLE VIAL IVPUSH SCH (11:17)
[2023-08-29] MEDS: PIPERACILLIN/TAZOB 2.25 GM 2.25 GM in DEXTROSE 5%-WATER - 50 ML IVPB SCH (12:20)
[2023-08-29] MEDS: INSULIN ASPART SLIDING SCALE (NOVOLOG) 1 VIAL SQ SCH (16:50)
[2023-08-29] MEDS: DOXYCYCLINE HYCLATE 100 MG CAPSULE PO SCH (18:41)
[2023-08-29] MEDS: PRAMIPEXOLE DIHYDROCHLORIDE 0.5 MG TABLET PO SCH (21:29)
[2023-08-29] MEDS: ATORVASTATIN CA 20 MG TABLET (FP) PO SCH (21:29)
[2023-08-29] MEDS: GABAPENTIN 300 MG CAPSULE PO SCH (21:29)
[2023-08-30] MEDS: LEVOTHYROXINE NA 75 MCG TABLET (FP) PO SCH (06:44)
[2023-08-30 07:54] LABS: HEMATOCRIT 32.4 % (35.4-49); MCH 34.3 pg (25.7-33.7); MCHC 34.1 g/dl (32.0-35.9); MEAN CELL VOLUME 100.7 fl (80-96); MEAN PLT VOLUME 7.4 fl (7.5-11.1); PLATELET COUNT 162 10^3/uL (134-434); RBC 3.22 M/mm3 (4.00-5.60); RDW 13.4 % (11.9-15.9); WHITE BLOOD COUNT 4.6 K/mm3 (4.0-10.0)
[2023-08-30 08:26] LABS: POTASSIUM 4.8 mmol/L (3.5-5.1)
[2023-08-30 08:28] LABS: CALCIUM 8.1 mg/dL (8.5-10.1)
[2023-08-30 08:29] LABS: ALBUMIN 2.7 g/dl (3.4-5.0); BLOOD UREA NITROGEN 49.9 mg/dL (7-18)
[2023-08-30 08:32] LABS: CREATININE 2.4 mg/dL (0.55-1.3); PHOSPHOROUS 3.5 mg/dL (2.5-4.9)
[2023-08-30 08:33] LABS: BILIRUBIN,TOTAL 1.3 mg/dL (0.2-1); TOT PROT 5.9 g/dl (6.4-8.2)
[2023-08-30] MEDS: EMPAGLIFLOZIN (JARDIANCE) 10 MG TABLET PO SCH (11:46)
[2023-08-30 15:57] VITALS: BMI 29.2
[2023-08-30] MEDS: AMINO ACIDS/PROTEIN HYDROLYS 30 ML LIQUID.PKT PO SCH (17:08)
[2023-08-30 20:56] VITALS: RESP 18
[2023-08-30] MEDS: ASCORBIC ACID 500 MG TABLET (FP) PO SCH (21:46)
[2023-08-31 09:56] LABS: HEMATOCRIT 37.1 % (35.4-49); HEMOGLOBIN 12.2 GM/dL (11.7-16.9); MCH 33.3 pg (25.7-33.7); MCHC 32.8 g/dl (32.0-35.9); MEAN CELL VOLUME 101.4 fl (80-96); MEAN PLT VOLUME 7.6 fl (7.5-11.1); PLATELET COUNT 181 10^3/uL (134-434); RBC 3.65 M/mm3 (4.00-5.60); RDW 13.4 % (11.9-15.9); WHITE BLOOD COUNT 5.9 K/mm3 (4.0-10.0)
[2023-08-31] MEDS ORDERED: metoPROLOL SUCCINATE 25 MG TAB.SR.24H (FP) PO SCH (10:00)
[2023-08-31] MEDS: BACITRACIN ZINC 15 GM TUBE TOPICAL OINTMENT TP SCH (10:08)
[2023-08-31] MEDS: MULTIVITAMINS (DAILY MVI) TABLET (FP) PO SCH (10:09)
[2023-08-31] MEDS: LOSARTAN POTASSIUM 25 MG TABLET PO SCH (10:09)
[2023-08-31 10:11] LABS: POTASSIUM 4.3 mmol/L (3.5-5.1)
[2023-08-31 10:13] LABS: CALCIUM 8.3 mg/dL (8.5-10.1)
[2023-08-31 10:14] LABS: ALBUMIN 3.2 g/dl (3.4-5.0); BLOOD UREA NITROGEN 53.4 mg/dL (7-18); MAGNESIUM 2.2 mg/dL (1.8-2.4)
[2023-08-31 10:17] LABS: CREATININE 2.7 mg/dL (0.55-1.3); PHOSPHOROUS 3.9 mg/dL (2.5-4.9)
[2023-08-31 10:18] LABS: BILIRUBIN,TOTAL 1.4 mg/dL (0.2-1)
[2023-08-31 10:19] LABS: TOT PROT 6.6 g/dl (6.4-8.2)
[2023-08-31] MEDS: metoPROLOL SUCCINATE 25 MG TAB.SR.24H (FP) PO SCH (11:35)
[2023-08-31] MEDS: DAPTOMYCIN 500 MG in SODIUM CHLORIDE 50 ML IVPB SCH (13:09)
[2023-09-01 09:42] LABS: HEMATOCRIT 38.3 % (35.4-49); HEMOGLOBIN 12.3 GM/dL (11.7-16.9); MCH 32.9 pg (25.7-33.7); MCHC 32.2 g/dl (32.0-35.9); MEAN CELL VOLUME 102.3 fl (80-96); MEAN PLT VOLUME 7.6 fl (7.5-11.1); PLATELET COUNT 171 10^3/uL (134-434); RBC 3.74 M/mm3 (4.00-5.60); RDW 13.6 % (11.9-15.9); WHITE BLOOD COUNT 4.8 K/mm3 (4.0-10.0)
[2023-09-01 09:46] LABS: POTASSIUM 4.4 mmol/L (3.5-5.1)
[2023-09-01 10:03] LABS: CALCIUM 8.3 mg/dL (8.5-10.1)
[2023-09-01 10:04] LABS: BLOOD UREA NITROGEN 56.4 mg/dL (7-18); MAGNESIUM 2.3 mg/dL (1.8-2.4)
[2023-09-01 10:07] LABS: CREATININE 2.3 mg/dL (0.55-1.3); PHOSPHOROUS 3.9 mg/dL (2.5-4.9)
[2023-09-01 10:09] LABS: BILIRUBIN,TOTAL 1.1 mg/dL (0.2-1)
[2023-09-01 10:10] LABS: TOT PROT 6.4 g/dl (6.4-8.2)
[2023-09-03 05:09] VITALS: TEMP 97.6
[2023-09-03 08:50] VITALS: BP 121/58; PULSE 86
== END 2023-09-03 15:24 | disposition home or self-care (01) | DRG 603 ==
LOC: JER 13:29 → JERBED 16:57 → J6S 20:57
PROVIDERS: ADMIT Internal Medicine; ATTEND Internal Medicine
DX: L03.116 Cellulitis of left lower limb (principal); E11.22 Type 2 diabetes mellitus with diabetic chronic kidney disease; I12.9 Hypertensive chronic kidney disease with stage 1 through stage 4 chronic kidney disease, or unspecified chronic kidney disease; N18.30 Chronic kidney disease, stage 3 unspecified; G25.81 Restless legs syndrome; E78.5 Hyperlipidemia, unspecified
CPT/HCPCS: 36415; 73562-TC-LT-FY; 73590-TC-LT-FY; 73610-TC-LT-FY; 73630-TC-LT; 80048; 80053; 82550; 82962; 83735; 83880; 84100; 85025; 85027; 85651; 86140; 87040; 87070; 87186; 87205; 93005; 93010; 99285-25; J0131; J0878; J1644

== ENCOUNTER 2024-04-25 12:38 | Inpatient (IN) | payer OTHER, BC ==
[2024-04-25 13:09] VITALS: RESP 18; BMI 29.0
[2024-04-25 15:05] LABS: HEMATOCRIT 35.4 % (35.4-49); HEMOGLOBIN 11.9 GM/dL (11.7-16.9); MCH 33.4 pg (25.7-33.7); MCHC 33.5 g/dl (32.0-35.9); MEAN CELL VOLUME 99.7 fl (80-96); MEAN PLT VOLUME 7.6 fl (7.5-11.1); PLATELET COUNT 130 10^3/uL (134-434); RBC 3.55 M/mm3 (4.00-5.60); RDW 14.2 % (11.9-15.9); WHITE BLOOD COUNT 5.9 K/mm3 (4.0-10.0)
[2024-04-25 15:20] LABS: INR 1.07 (0.83-1.09); PROTHROMBIN TIME (PATIENT) 12.1 SEC (9.7-13.0)
[2024-04-25 15:23] LABS: ACTIVATED PTT 29.9 SECONDS (25.2-36.5)
[2024-04-25 15:38] LABS: POTASSIUM 5.1 mmol/L (3.5-5.1)
[2024-04-25 15:40] LABS: ALBUMIN 3.4 g/dl (3.4-5.0); CALCIUM 8.6 mg/dL (8.5-10.1)
[2024-04-25 15:41] LABS: BLOOD UREA NITROGEN 37.8 mg/dL (7-18)
[2024-04-25 15:44] LABS: CREATININE 2.5 mg/dL (0.55-1.3)
[2024-04-25 15:45] LABS: BILIRUBIN,TOTAL 1.5 mg/dL (0.2-1); TOT PROT 6.4 g/dl (6.4-8.2)
[2024-04-25 15:46] LABS: ERYTHROCYTE SEDIMENTATION RATE 33 mm/hr (0-20)
[2024-04-25] MEDS ORDERED: ACETAMINOPHEN INJECTION 100 ML ONE (16:28)
[2024-04-25] MEDS ORDERED: CEFTRIAXONE 1 GM/50 ML BAG ONE (16:29)
[2024-04-25] MEDS ORDERED: VANCOMYCIN 1 GRAM (PRE-DOCKED) 1,000 MG/250 ML BAG IVPB ONE (16:29)
[2024-04-25 16:33] LABS: HIV INTERPRETATION NEGATIVE (NEGATIVE)
[2024-04-25] MEDS: ACETAMINOPHEN 1000 MG/100 ML BAG IVPB ONE (16:39)
[2024-04-25] MEDS: CEFTRIAXONE 1 GM in DEXTROSE 5%-WATER - 50 ML IVPB ONE (16:40)
[2024-04-25] MEDS: VANCOMYCIN 1,000 MG in DEXTROSE 5%-WATER - 250 ML IVPB ONE (17:06)
[2024-04-25] MEDS ORDERED: APIXABAN 5 MG TABLET ONE (21:52)
[2024-04-25] MEDS ORDERED: ATORVASTATIN CA 20 MG TABLET (FP) ONE (21:52)
[2024-04-25] MEDS ORDERED: HEPARIN NA (PORCINE) 5,000 UNITS/ML 1ML VIAL ONE (21:53)
[2024-04-25] MEDS ORDERED: GABAPENTIN 300 MG CAPSULE ONE (21:53)
[2024-04-25] MEDS ORDERED: HEPARIN NA (PORCINE) 5,000 UNITS/ML 1ML VIAL SQ SCH (22:00)
[2024-04-25] MEDS ORDERED: APIXABAN 5 MG TABLET PO SCH (22:00)
[2024-04-25] MEDS ORDERED: ACETAMINOPHEN 325 MG TABLET (FP) PO PRN (22:03)
[2024-04-25] MEDS: GABAPENTIN 300 MG CAPSULE PO SCH (22:05)
[2024-04-25] MEDS: ATORVASTATIN CA 20 MG TABLET (FP) PO SCH (22:05)
[2024-04-25] MEDS: APIXABAN 5 MG TABLET PO SCH (22:05)
[2024-04-26] MEDS: LEVOTHYROXINE NA 75 MCG TABLET (FP) PO SCH (07:24)
[2024-04-26] MEDS: PRAMIPEXOLE DIHYDROCHLORIDE 0.5 MG TABLET PO SCH (10:43)
[2024-04-26] MEDS: LOSARTAN POTASSIUM 25 MG TABLET PO SCH (10:43)
[2024-04-26] MEDS: ASPIRIN COATED 81 MG TABLET.EC PO SCH (10:43)
[2024-04-26] MEDS: metoPROLOL SUCCINATE 25 MG TAB.SR.24H (FP) PO SCH (10:43)
[2024-04-26 10:48] LABS: HEMATOCRIT 32.4 % (35.4-49); HEMOGLOBIN 10.9 GM/dL (11.7-16.9); MCH 33.3 pg (25.7-33.7); MCHC 33.5 g/dl (32.0-35.9); MEAN CELL VOLUME 99.5 fl (80-96); MEAN PLT VOLUME 7.8 fl (7.5-11.1); PLATELET COUNT 113 10^3/uL (134-434); RBC 3.26 M/mm3 (4.00-5.60); RDW 14.1 % (11.9-15.9)
[2024-04-26 10:50] LABS: POTASSIUM 4.7 mmol/L (3.5-5.1)
[2024-04-26] MEDS: CEFTRIAXONE 1 G/50 ML PREMIX 50 ML IVPB SCH (10:53)
[2024-04-26] MEDS: CEFTRIAXONE 1 GM in DEXTROSE 5%-WATER - 50 ML IVPB SCH (10:54)
[2024-04-26 11:02] LABS: ALBUMIN 2.9 g/dl (3.4-5.0); BLOOD UREA NITROGEN 40.8 mg/dL (7-18); CALCIUM 8.5 mg/dL (8.5-10.1)
[2024-04-26 11:03] LABS: MAGNESIUM 2.1 mg/dL (1.8-2.4)
[2024-04-26 11:05] LABS: CREATININE 2.3 mg/dL (0.55-1.3); PHOSPHOROUS 2.8 mg/dL (2.5-4.9)
[2024-04-26 11:06] LABS: BILIRUBIN,TOTAL 1.6 mg/dL (0.2-1); TOT PROT 5.4 g/dl (6.4-8.2)
[2024-04-26] MEDS: EMPAGLIFLOZIN (JARDIANCE) 10 MG TABLET PO SCH (12:42)
[2024-04-26] MEDS ORDERED: VANCOMYCIN 1,000 MG in DEXTROSE 5%-WATER - 250 ML IVPB SCH (16:00)
[2024-04-26] MEDS: VANCOMYCIN/WATER 1250 MG 1,250 MG/250 ML BAG IVPB SCH (16:03)
[2024-04-27 09:44] LABS: BASO % 0.6 % (0-2.0); EOS % 7.4 % (0-4.5); HEMATOCRIT 33.7 % (35.4-49); HEMOGLOBIN 11.4 GM/dL (11.7-16.9); LYMPH % 9.5 % (8-40); MCH 33.5 pg (25.7-33.7); MCHC 33.7 g/dl (32.0-35.9); MEAN CELL VOLUME 99.5 fl (80-96); MEAN PLT VOLUME 7.6 fl (7.5-11.1); MONO % 6.4 % (3.8-10.2); NEUT % 76.1 % (42.8-82.8); PLATELET COUNT 125 10^3/uL (134-434); RBC 3.39 M/mm3 (4.00-5.60); RDW 14.2 % (11.9-15.9); WHITE BLOOD COUNT 4.4 K/mm3 (4.0-10.0)
[2024-04-27] MEDS ORDERED: CEFTRIAXONE 1 G/50 ML PREMIX 50 ML IVPB SCH (10:00)
[2024-04-27 10:42] LABS: BLOOD UREA NITROGEN 43.5 mg/dL (7-18); CALCIUM 8.5 mg/dL (8.5-10.1)
[2024-04-27 10:46] LABS: CREATININE 2.4 mg/dL (0.55-1.3)
[2024-04-28 06:28] VITALS: BP 122/70; PULSE 76; TEMP 98.2
[2024-04-28 09:38] LABS: BASO % 0.8 % (0-2.0); EOS % 7.8 % (0-4.5); HEMATOCRIT 35.1 % (35.4-49); HEMOGLOBIN 11.9 GM/dL (11.7-16.9); LYMPH % 11.2 % (8-40); MCH 33.6 pg (25.7-33.7); MCHC 33.8 g/dl (32.0-35.9); MEAN CELL VOLUME 99.6 fl (80-96); MEAN PLT VOLUME 7.6 fl (7.5-11.1); MONO % 6.8 % (3.8-10.2); NEUT % 73.4 % (42.8-82.8); PLATELET COUNT 129 10^3/uL (134-434); RBC 3.53 M/mm3 (4.00-5.60); WHITE BLOOD COUNT 4.2 K/mm3 (4.0-10.0)
[2024-04-28 09:56] LABS: BLOOD UREA NITROGEN 45.7 mg/dL (7-18); CALCIUM 8.5 mg/dL (8.5-10.1)
[2024-04-28 09:59] LABS: CREATININE 2.3 mg/dL (0.55-1.3)
[2024-04-28] MEDS ORDERED: AMOX TR/POT CLAV 875MG/125MG TABLETS (FP) PO SCH (17:30)
[2024-04-28] MEDS ORDERED: DOXYCYCLINE HYCLATE 100 MG CAPSULE PO SCH (18:00)
== END 2024-04-28 12:28 | disposition home or self-care (01) | DRG 603 ==
LOC: JER 12:38 → JERBED 15:53 → J8W 04-26 01:12
PROVIDERS: ADMIT Internal Medicine; ATTEND Nurse Practitioner Acute Care
DX: L03.116 Cellulitis of left lower limb (principal); I82.449 Acute embolism and thrombosis of unspecified tibial vein; E11.22 Type 2 diabetes mellitus with diabetic chronic kidney disease; I12.9 Hypertensive chronic kidney disease with stage 1 through stage 4 chronic kidney disease, or unspecified chronic kidney disease; N18.9 Chronic kidney disease, unspecified; E11.42 Type 2 diabetes mellitus with diabetic polyneuropathy; E03.9 Hypothyroidism, unspecified; E78.5 Hyperlipidemia, unspecified; E11.51 Type 2 diabetes mellitus with diabetic peripheral angiopathy without gangrene; G25.81 Restless legs syndrome
CPT/HCPCS: 36415; 80048; 80053; 82962; 83735; 84100; 85025; 85027; 85610; 85651; 85730; 86140; 86803; 86850; 86900; 86901; 87070; 87205; 87389; 93005; 93010; 93971-TC; 99285-25; G0463-25; G0480; J0131

== ENCOUNTER 2024-09-12 10:38 | Inpatient (IN) | payer OTHER, BC ==
[2024-09-12 10:50] VITALS: BMI 30.7
[2024-09-12] MEDS ORDERED: ACETAMINOPHEN INJECTION 100 ML ONE (13:13)
[2024-09-12] MEDS: SODIUM CHLORIDE 0.9% 500 ML INFUS.BAG IV ONE (13:19)
[2024-09-12] MEDS: ACETAMINOPHEN 1000 MG/100 ML BAG IVPB ONE (13:20)
[2024-09-12 13:35] LABS: ABSOLUTE IMMATURE GRANULOCYTES 0.02 x10^3/uL (0.0-0.031); BASOPHILS # 0.04 x10^3/uL (0.01-0.08); EOSINOPHIL % 3.5 % (0.8-7.0); EOSINOPHILS # 0.23 x10^3/uL (0.04-0.54); HEMATOCRIT 34.4 % (40.1-51.0); HEMOGLOBIN 10.9 g/dL (13.7-17.5); MCHC 31.7 g/dl (32.3-36.5); MEAN CELL VOLUME 103.6 fl (79.0-92.2); MEAN PLT VOLUME 9.8 fl (9.4-12.4); MONOCYTE # 0.58 x10^3/uL (0.30-0.82); MONOCYTE % 8.9 % (5.3-12.2); PLATELET COUNT 149 x10^3/uL (163-337); RDW 12.9 % (12.6-16.6)
[2024-09-12 14:02] LABS: BLOOD UREA NITROGEN 57.1 mg/dL (7-18); CALCIUM 9.3 mg/dL (8.5-10.1)
[2024-09-12] MEDS ORDERED: PIPERACILLIN/TAZOB 4.5 GM 4.5 GM/100 ML BAG IVPB ONE (14:05)
[2024-09-12 14:08] LABS: BILIRUBIN,TOTAL 1.2 mg/dL (0.2-1); TOT PROT 6.2 g/dl (6.4-8.2)
[2024-09-12] MEDS: PIPERACILLIN/TAZOB 4.5 GM 4.5 GM in DEXTROSE 5%-WATER 100 ML IVPB ONE (14:10)
[2024-09-12 14:11] LABS: N-TERMINAL BNP 234.2 pg/ml (5-450)
[2024-09-12 14:13] LABS: CREATININE 2.8 mg/dL (0.55-1.3)
[2024-09-12 14:15] LABS: ERYTHROCYTE SEDIMENTATION RATE 51 mm/hr (0-20)
[2024-09-12] MEDS ORDERED: MORPHINE SULFATE 2 MG/ML SYRINGE ONE (14:39)
[2024-09-12] MEDS: morphine SULFATE 4 MG/ML VIAL IVPUSH ONE (14:51)
[2024-09-12 15:01] LABS: VENOUS BASE EXCESS -4.9 mmol/L (-2-2); VENOUS O2 SATURATION 55.9 % (70-80); VENOUS PCO2 45.3 mmHg (38-52); VENOUS PH 7.294 (7.310-7.410)
[2024-09-12] MEDS ORDERED: ACETAMINOPHEN 325 MG TABLET (FP) PO PRN (15:47)
[2024-09-12] MEDS: VANCOMYCIN HCL IN 5 % DEXTROSE 1,500 MG/300 ML BAG IVPB ONE (15:49)
[2024-09-12] MEDS ORDERED: LORazepam 2 MG/ML SDV VIAL IVPUSH PRN (16:17)
[2024-09-12] MEDS: INSULIN ASPART SLIDING SCALE (NOVOLOG) 1 VIAL SQ SCH (17:22)
[2024-09-12 17:46] LABS: MAGNESIUM 2.3 mg/dL (1.8-2.4)
[2024-09-12] MEDS: PIPERACILLIN/TAZOB 2.25 GM 2.25 GM/50 ML BAG IVPB SCH ×2 (18:36→18:58)
[2024-09-12] MEDS: VANCOMYCIN HCL 1,500 MG in DEXTROSE 5%-WATER - 500 ML IVPB ONE (18:45)
[2024-09-12] MEDS: HEPARIN NA (PORCINE) 5,000 UNITS/ML 1ML VIAL SQ SCH (21:53)
[2024-09-12] MEDS: CALCIUM ACETATE/AL SULFATE TOP 1.9 GM/PACKET PACKET TP SCH (21:53)
[2024-09-12] MEDS: ATORVASTATIN CA 20 MG TABLET (FP) PO SCH (21:55)
[2024-09-12] MEDS ORDERED: HEPARIN NA (PORCINE) 5,000 UNITS/ML 1ML VIAL SQ SCH (22:00)
[2024-09-13] MEDS: LEVOTHYROXINE NA 75 MCG TABLET (FP) PO SCH (06:48)
[2024-09-13 07:17] LABS: HEMATOCRIT 34.5 % (40.1-51.0); HEMOGLOBIN 10.7 g/dL (13.7-17.5); MEAN CELL VOLUME 103.3 fl (79.0-92.2); MEAN PLT VOLUME 9.5 fl (9.4-12.4); PLATELET COUNT 164 x10^3/uL (163-337); RDW 12.8 % (12.6-16.6)
[2024-09-13 07:38] LABS: CALCIUM 8.9 mg/dL (8.5-10.1)
[2024-09-13 07:40] LABS: BLOOD UREA NITROGEN 58.7 mg/dL (7-18); MAGNESIUM 2.1 mg/dL (1.8-2.4)
[2024-09-13 07:42] LABS: CREATININE 2.9 mg/dL (0.55-1.3)
[2024-09-13 07:43] LABS: PHOSPHOROUS 3.6 mg/dL (2.5-4.9)
[2024-09-13] MEDS ORDERED: TORSEMIDE 20 MG TABLET (FP) PO SCH (10:00)
[2024-09-13] MEDS: FOLIC ACID 1 MG TABLET (FP) PO SCH (10:05)
[2024-09-13] MEDS: metoPROLOL SUCCINATE 25 MG TAB.SR.24H (FP) PO SCH (10:05)
[2024-09-13] MEDS: ASPIRIN 81 MG CHEWABLE TABLETS PO SCH (10:05)
[2024-09-13] MEDS: PRAMIPEXOLE DIHYDROCHLORIDE 0.5 MG TABLET PO SCH (10:05)
[2024-09-13] MEDS: THIAMINE 100 MG TABLET PO SCH (10:05)
[2024-09-13] MEDS: GABAPENTIN 300 MG CAPSULE PO SCH (10:05)
[2024-09-13] MEDS: MINERAL OIL/PET HY-PHL TOPICAL OINTMENT 454 GM JAR TP SCH (10:06)
[2024-09-13] MEDS ORDERED: CALCIUM ACETATE/AL SULFATE TOP 1.9 GM/PACKET PACKET TP SCH (10:37)
[2024-09-13] MEDS: VANCOMYCIN/WATER FOR INJ (PEG) 1,000 MG/200 ML BAG IVPB ONE (14:53)
[2024-09-13 18:01] LABS: EPI CELLS 15 /uL (0-25.1); HYALINE CASTS 1 /uL (0-3.1); URINE APPEARANCE CLEAR; URINE BACTERIA 11 /uL (0-1359); URINE BILIRUBIN NEGATIVE (NEGATIVE); URINE COLOR YELLOW; URINE GLUCOSE (UA) 2+ (NEGATIVE); URINE KETONE NEGATIVE (NEGATIVE); URINE LEUK ESTERASE 1+ (NEGATIVE); URINE NITRITE NEGATIVE (NEGATIVE); URINE PROTEIN 1+ (NEGATIVE); URINE UROBILINOGEN 0.2 mg/dL (0.2-1.0); URINE WBC 133 /uL (0-25.8)
[2024-09-13 18:14] LABS: URINE RBC 44.5 /uL (0-23.9)
[2024-09-13] MEDS: CALCIUM ACETATE/AL SULFATE TOP 1.9 GM/PACKET PACKET TP SCH (21:41)
[2024-09-14 08:55] LABS: ABSOLUTE IMMATURE GRANULOCYTES 0.01 x10^3/uL (0.0-0.031); BASOPHILS # 0.03 x10^3/uL (0.01-0.08); EOSINOPHIL % 4.1 % (0.8-7.0); EOSINOPHILS # 0.18 x10^3/uL (0.04-0.54); HEMATOCRIT 31.8 % (40.1-51.0); HEMOGLOBIN 9.8 g/dL (13.7-17.5); MCHC 30.8 g/dl (32.3-36.5); MEAN CELL VOLUME 104.3 fl (79.0-92.2); MEAN PLT VOLUME 9.9 fl (9.4-12.4); MONOCYTE # 0.38 x10^3/uL (0.30-0.82); MONOCYTE % 8.7 % (5.3-12.2); PLATELET COUNT 147 x10^3/uL (163-337); RDW 12.8 % (12.6-16.6)
[2024-09-14 09:19] LABS: POTASSIUM 5.2 mmol/L (3.5-5.1)
[2024-09-14 09:23] LABS: BLOOD UREA NITROGEN 58.8 mg/dL (7-18); CALCIUM 8.2 mg/dL (8.5-10.1); MAGNESIUM 2.2 mg/dL (1.8-2.4)
[2024-09-14 09:25] LABS: ALBUMIN 2.3 g/dl (3.4-5.0)
[2024-09-14 09:27] LABS: CREATININE 2.7 mg/dL (0.55-1.3)
[2024-09-14 09:28] LABS: BILIRUBIN,TOTAL 1.7 mg/dL (0.2-1); TOT PROT 5.1 g/dl (6.4-8.2)
[2024-09-14] MEDS: ACETAMINOPHEN 325 MG TABLET (FP) PO PRN (20:43)
[2024-09-15] MEDS: CEFTRIAXONE 2 GM-D5W BAG 2 GM/50 ML BAG IVPB SCH (11:28)
[2024-09-16] MEDS: MINERAL OIL/PET HY-PHL TOPICAL OINTMENT 454 GM JAR TP SCH (06:12)
[2024-09-16 06:13] VITALS: RESP 18
[2024-09-16] MEDS: oxyCODONE HCL 5 MG TABLET PO PRN (06:53)
[2024-09-16 08:42] LABS: ABSOLUTE IMMATURE GRANULOCYTES 0.01 x10^3/uL (0.0-0.031); BASOPHILS # 0.03 x10^3/uL (0.01-0.08); EOSINOPHIL % 6.9 % (0.8-7.0); EOSINOPHILS # 0.27 x10^3/uL (0.04-0.54); HEMOGLOBIN 9.9 g/dL (13.7-17.5); MCHC 30.9 g/dl (32.3-36.5); MEAN CELL VOLUME 103.9 fl (79.0-92.2); MONOCYTE # 0.34 x10^3/uL (0.30-0.82); MONOCYTE % 8.7 % (5.3-12.2); PLATELET COUNT 154 x10^3/uL (163-337); RDW 12.6 % (12.6-16.6)
[2024-09-16 09:00] LABS: POTASSIUM 4.7 mmol/L (3.5-5.1)
[2024-09-16 09:13] LABS: BLOOD UREA NITROGEN 44.6 mg/dL (7-18); CALCIUM 8.2 mg/dL (8.5-10.1)
[2024-09-16 09:14] LABS: ALBUMIN 2.4 g/dl (3.4-5.0); MAGNESIUM 2.3 mg/dL (1.8-2.4)
[2024-09-16 09:16] LABS: CREATININE 2.4 mg/dL (0.55-1.3)
[2024-09-16 09:17] LABS: BILIRUBIN,TOTAL 0.7 mg/dL (0.2-1)
[2024-09-16 09:18] LABS: TOT PROT 5.4 g/dl (6.4-8.2)
[2024-09-17] MEDS: ACETAMINOPHEN 325 MG TABLET (FP) PO PRN (07:39)
[2024-09-17 09:07] LABS: ABSOLUTE IMMATURE GRANULOCYTES 0.02 x10^3/uL (0.0-0.031); BASOPHILS # 0.03 x10^3/uL (0.01-0.08); EOSINOPHIL % 6.2 % (0.8-7.0); EOSINOPHILS # 0.24 x10^3/uL (0.04-0.54); HEMATOCRIT 33.3 % (40.1-51.0); HEMOGLOBIN 10.1 g/dL (13.7-17.5); MCHC 30.3 g/dl (32.3-36.5); MEAN PLT VOLUME 9.8 fl (9.4-12.4); MONOCYTE % 7.8 % (5.3-12.2); PLATELET COUNT 165 x10^3/uL (163-337); RDW 12.5 % (12.6-16.6)
[2024-09-17 09:23] LABS: POTASSIUM 4.7 mmol/L (3.5-5.1)
[2024-09-17 09:26] LABS: CALCIUM 8.1 mg/dL (8.5-10.1)
[2024-09-17 09:27] LABS: ALBUMIN 2.4 g/dl (3.4-5.0); BLOOD UREA NITROGEN 42.5 mg/dL (7-18); MAGNESIUM 2.3 mg/dL (1.8-2.4)
[2024-09-17 09:30] LABS: CREATININE 2.1 mg/dL (0.55-1.3)
[2024-09-17 09:32] LABS: BILIRUBIN,TOTAL 0.8 mg/dL (0.2-1); TOT PROT 5.4 g/dl (6.4-8.2)
[2024-09-17] MEDS: GENTAMICIN SO4 0.1% TOPICAL OINTMENT 15 GM/TUBE TUBE TP SCH (13:41)
[2024-09-17 15:22] VITALS: BP 138/56; PULSE 78; TEMP 98.1
[2024-09-17] MEDS ORDERED: AMOX TR/POT CLAV 500MG/125MG TABLETS (FP) PO SCH (17:30)
== END 2024-09-17 17:04 | disposition home or self-care (01) | DRG 603 ==
LOC: JER 10:38 → JERBED 15:02 → J8W 16:03
PROVIDERS: ADMIT Student in an Organized Health Care Education/Training Program; ATTEND Nurse Practitioner Family
DX: L03.115 Cellulitis of right lower limb (principal); N18.4 Chronic kidney disease, stage 4 (severe); N17.9 Acute kidney failure, unspecified; I12.9 Hypertensive chronic kidney disease with stage 1 through stage 4 chronic kidney disease, or unspecified chronic kidney disease; E11.22 Type 2 diabetes mellitus with diabetic chronic kidney disease; D53.9 Nutritional anemia, unspecified; I87.2 Venous insufficiency (chronic) (peripheral); G25.81 Restless legs syndrome; E03.9 Hypothyroidism, unspecified; E87.5 Hyperkalemia; E87.6 Hypokalemia; F10.90 Alcohol use, unspecified, uncomplicated
CPT/HCPCS: 36415; 73630-TC-RT-FY; 76775-TC; 80048; 80053; 81003; 82570; 82607; 82728; 82803; 82962; 83036; 83540; 83550; 83605; 83735; 83880; 84100; 84156; 84300; 84443; 85025; 85027; 85651; 86140; 87040; 87070; 87186; 87205; 93005; 93010; 93970-TC; 97116-GP; 97161-GP; 99285-25; G0480; J0131; J1644

== ENCOUNTER 2025-03-13 15:06 | Inpatient (IN) | payer OTHER, BC ==
[2025-03-13 16:14] LABS: MCHC 30.8 g/dl (32.3-36.5); MEAN CELL VOLUME 101.0 fl (79.0-92.2); MEAN PLT VOLUME 10.3 fl (9.4-12.4); RDW 13.8 % (12.6-16.6)
[2025-03-13 16:22] LABS: BG HCT 41.0 % (35.4-49); VENOUS BASE EXCESS -0.9 mmol/L (-2-2); VENOUS O2 SATURATION 26.3 % (70-80); VENOUS PCO2 40.4 mmHg (38-52); VENOUS PH 7.39 (7.310-7.410)
[2025-03-13 16:24] LABS: INR 1.39 (0.83-1.09); PROTHROMBIN TIME (PATIENT) 15.2 SEC (9.7-13.0)
[2025-03-13 16:27] LABS: ACTIVATED PTT 27.9 SECONDS (25.2-36.5)
[2025-03-13 16:30] LABS: GLUCOSE,RANDOM 348.0 mg/dL (74-106)
[2025-03-13 16:31] LABS: CO2 23.0 mmol/L (21-32); TOT PROT 6.4 g/dl (6.4-8.2)
[2025-03-13 16:33] LABS: ALK PHOS 239.0 U/L (40-150)
[2025-03-13 16:36] LABS: CREATININE 3.43 mg/dL (0.55-1.3); SGOT/AST 102.0 U/L (5-34); SGPT/ALT 48.0 U/L (0-55)
[2025-03-13] MEDS ORDERED: THIAMINE HCL 200 MG/2 ML VIAL ONE (17:24)
[2025-03-13] MEDS ORDERED: FOLIC ACID 1 MG TABLET (FP) ONE (17:25)
[2025-03-13] MEDS: THIAMINE HCL 200 MG/2 ML VIAL IVPB ONE (17:32)
[2025-03-13] MEDS: FOLIC ACID 1 MG TABLET (FP) PO ONE (17:32)
[2025-03-13] MEDS ORDERED: ASPIRIN 81 MG CHEWABLE TABLETS ONE (18:25)
[2025-03-13] MEDS ORDERED: HEPARIN NA (PORCINE) 5,000 UNITS/ML 1ML VIAL ONE (18:25)
[2025-03-13 18:35] LABS: URINE APPEARANCE TURBID; URINE BILIRUBIN NEGATIVE (NEGATIVE); URINE COLOR YELLOW; URINE GLUCOSE (UA) 250 (NEGATIVE); URINE KETONE NEGATIVE (NEGATIVE); URINE LEUK ESTERASE 4+ (NEGATIVE); URINE NITRITE NEGATIVE (NEGATIVE); URINE PROTEIN 30 (NEGATIVE); URINE UROBILINOGEN 0.2 mg/dL (0.2-1.0)
[2025-03-13] MEDS: ASPIRIN 81 MG CHEWABLE TABLETS PO ONE (18:47)
[2025-03-13] MEDS: HEPARIN NA (PORCINE) 5,000 UNITS/ML 1ML VIAL IVPUSH ONE (18:47)
[2025-03-13] MEDS: HEPARIN INFUSION - 25,000 UNITS/500 ML INFUS.BAG IVPB SCH (19:01)
[2025-03-14] MEDS: INSULIN ASPART SLIDING SCALE (NOVOLOG) 1 VIAL SQ SCH ×2 (01:52→02:31)
[2025-03-14] MEDS: INSULIN GLARGINE (LANTUS) 100 UNITS/ML UNITS SQ ONE ×2 (01:52→01:54)
[2025-03-14] MEDS: AMMONIUM LACTATE 12% LOTION 225 GM BOTTLE TP SCH (02:08)
[2025-03-14] MEDS: SODIUM CHLORIDE 1,000 ML IV SCH (02:09)
[2025-03-14] MEDS: LEVOTHYROXINE NA 75 MCG TABLET (FP) PO SCH (07:16)
[2025-03-14 08:36] LABS: MCHC 30.4 g/dl (32.3-36.5); MEAN CELL VOLUME 104.3 fl (79.0-92.2); MEAN PLT VOLUME 10.2 fl (9.4-12.4); RDW 13.8 % (12.6-16.6)
[2025-03-14 08:51] LABS: GLUCOSE,RANDOM 167.0 mg/dL (74-106)
[2025-03-14 08:52] LABS: TOT PROT 5.6 g/dl (6.4-8.2)
[2025-03-14 08:53] LABS: CO2 22.0 mmol/L (21-32)
[2025-03-14 08:55] LABS: ALK PHOS 175.0 U/L (40-150)
[2025-03-14 08:57] LABS: SGOT/AST 140.0 U/L (5-34); SGPT/ALT 39.0 U/L (0-55)
[2025-03-14 08:58] LABS: CREATININE 3.31 mg/dL (0.55-1.3)
[2025-03-14] MEDS: PRAMIPEXOLE DIHYDROCHLORIDE 0.5 MG TABLET PO SCH (09:56)
[2025-03-14] MEDS: GABAPENTIN 300 MG CAPSULE PO SCH (09:56)
[2025-03-14 11:04] LABS: INR 1.47 (0.83-1.09); PROTHROMBIN TIME (PATIENT) 16.2 SEC (9.7-13.0)
[2025-03-14 11:51] LABS: INR 1.38 (0.83-1.09); PROTHROMBIN TIME (PATIENT) 15.2 SEC (9.7-13.0)
[2025-03-14 11:54] LABS: ACTIVATED PTT 44.8 SECONDS (25.2-36.5)
[2025-03-14] MEDS: SODIUM CHLORIDE 0.45% 1,000 ML IV SCH (12:39)
[2025-03-14] MEDS ORDERED: HEPARIN NA (PORCINE) 5,000 UNITS/ML 1ML VIAL IVPUSH PRN (14:00)
[2025-03-14] MEDS: HEPARIN - 25,000 UNIT in SODIUM CHLORIDE 495 ML IV SCH (15:00)
[2025-03-14 16:11] VITALS: BMI 28.8
[2025-03-14] MEDS: SILVER SULFADIAZINE 1% TOP CREAM 50 GM JAR TP SCH (17:04)
[2025-03-14] MEDS: HEPARIN NA (PORCINE) 5,000 UNITS/ML 1ML VIAL IVPUSH PRN (21:12)
[2025-03-15 09:00] LABS: ABSOLUTE IMMATURE GRANULOCYTES 0.02 x10^3/uL (0.0-0.031); BASOPHILS # 0.03 x10^3/uL (0.01-0.08); EOSINOPHIL % 3.5 % (0.8-7.0); EOSINOPHILS # 0.15 x10^3/uL (0.04-0.54); MCHC 30.1 g/dl (32.3-36.5); MEAN CELL VOLUME 101.9 fl (79.0-92.2); MEAN PLT VOLUME 10.1 fl (9.4-12.4); MONOCYTE # 0.21 x10^3/uL (0.30-0.82); MONOCYTE % 4.9 % (5.3-12.2); RDW 13.7 % (12.6-16.6)
[2025-03-15 09:27] LABS: GLUCOSE,RANDOM 170.0 mg/dL (74-106); TOT PROT 5.3 g/dl (6.4-8.2)
[2025-03-15 09:28] LABS: CO2 23.0 mmol/L (21-32)
[2025-03-15 09:29] LABS: ALK PHOS 154.0 U/L (40-150)
[2025-03-15 09:32] LABS: SGOT/AST 122.0 U/L (5-34); SGPT/ALT 41.0 U/L (0-55)
[2025-03-15 09:33] LABS: CREATININE 2.95 mg/dL (0.55-1.3)
[2025-03-15 10:12] LABS: N-TERMINAL BNP 1455.6 pg/mL (0-299.9)
[2025-03-15] MEDS: LACTATED RINGERS SOLUTION 1,000 ML/1,000 ML INFUS.BAG IV SCH (12:07)
[2025-03-15] MEDS: HEPARIN NA (PORCINE) 5,000 UNITS/ML 1ML VIAL SQ SCH (14:28)
[2025-03-15] MEDS: MAGNESIUM HYDROX 2400MG/30ML ORAL SUSPENSION 30 ML CUP PO ONE (14:30)
[2025-03-15] MEDS ORDERED: NAPH,MB-DB/K PH,MBDB POWDER PACKET PO ONE (17:55)
[2025-03-15] MEDS ORDERED: NAPH,MB-DB/K PH,MBDB POWDER PACKET ONE (21:17)
[2025-03-15] MEDS: NAPH,MB-DB/K PH,MBDB POWDER PACKET PO ONE (21:18)
[2025-03-16 07:47] LABS: MCHC 31.0 g/dl (32.3-36.5); MEAN CELL VOLUME 102.4 fl (79.0-92.2); MEAN PLT VOLUME 9.8 fl (9.4-12.4); RDW 13.5 % (12.6-16.6)
[2025-03-16 08:27] LABS: GLUCOSE,RANDOM 162.0 mg/dL (74-106); TOT PROT 5.1 g/dl (6.4-8.2)
[2025-03-16 08:28] LABS: CO2 22.0 mmol/L (21-32)
[2025-03-16 08:30] LABS: ALK PHOS 163.0 U/L (40-150)
[2025-03-16 08:32] LABS: SGOT/AST 87.0 U/L (5-34); SGPT/ALT 44.0 U/L (0-55)
[2025-03-16 08:33] LABS: CREATININE 2.52 mg/dL (0.55-1.3)
[2025-03-16] MEDS: SODIUM CHLORIDE 1,000 ML IV SCH (09:28)
[2025-03-16] MEDS: ACETAMINOPHEN 500 MG TABLET (FP) PO ONE (20:13)
[2025-03-17] MEDS: AMMONIUM LACTATE 12% LOTION 225 GM BOTTLE TP SCH (06:24)
[2025-03-17 08:22] LABS: ABSOLUTE IMMATURE GRANULOCYTES 0.03 x10^3/uL (0.0-0.031); BASOPHILS # 0.03 x10^3/uL (0.01-0.08); EOSINOPHIL % 3.5 % (0.8-7.0); EOSINOPHILS # 0.20 x10^3/uL (0.04-0.54); MCHC 29.9 g/dl (32.3-36.5); MEAN CELL VOLUME 102.1 fl (79.0-92.2); MEAN PLT VOLUME 9.9 fl (9.4-12.4); MONOCYTE # 0.38 x10^3/uL (0.30-0.82); MONOCYTE % 6.6 % (5.3-12.2); RDW 13.2 % (12.6-16.6)
[2025-03-17 08:51] LABS: GLUCOSE,RANDOM 180.0 mg/dL (74-106)
[2025-03-17 08:53] LABS: CO2 23.0 mmol/L (21-32)
[2025-03-17 08:54] LABS: ALK PHOS 205.0 U/L (40-150)
[2025-03-17 08:57] LABS: SGOT/AST 66.0 U/L (5-34); SGPT/ALT 48.0 U/L (0-55)
[2025-03-17 08:58] LABS: CREATININE 2.16 mg/dL (0.55-1.3)
[2025-03-17 09:16] LABS: TOT PROT 6.1 g/dl (6.4-8.2)
[2025-03-17] MEDS: POLYETHYLENE GLYCOL (HEALTHYLAX) 3350 17 GM PACKET PO ONE (15:40)
[2025-03-17] MEDS: SODIUM PHOSPHATE/NA BIPHOS 133 ML ENEMA RC ONE ×2 (15:40→17:44)
[2025-03-17] MEDS: SODIUM PHOSPHATE/NA BIPHOS 133 ML ENEMA PR ONE (17:44)
[2025-03-17] MEDS: POLYETHYLENE GLYCOL (HEALTHYLAX) 3350 17 GM PACKET PO SCH (22:00)
[2025-03-18 08:45] LABS: MCHC 31.1 g/dl (32.3-36.5); MEAN CELL VOLUME 101.9 fl (79.0-92.2); MEAN PLT VOLUME 9.8 fl (9.4-12.4); RDW 13.2 % (12.6-16.6)
[2025-03-18 09:23] LABS: GLUCOSE,RANDOM 173.0 mg/dL (74-106); TOT PROT 5.6 g/dl (6.4-8.2)
[2025-03-18 09:24] LABS: CO2 22.0 mmol/L (21-32)
[2025-03-18 09:26] LABS: ALK PHOS 194.0 U/L (40-150)
[2025-03-18 09:28] LABS: SGOT/AST 37.0 U/L (5-34); SGPT/ALT 37.0 U/L (0-55)
[2025-03-18 09:29] LABS: CREATININE 2.08 mg/dL (0.55-1.3)
[2025-03-18] MEDS: VITAMIN B COMP W-C 1 EA TABLET (NEPHRO-VITE) PO SCH (13:40)
[2025-03-18] MEDS: SODIUM ZIRCONIUM CYCLOSILICATE (LOKELMA) 5 GM PACKET PO ONE (15:05)
[2025-03-18 15:55] VITALS: BP 132/65; PULSE 91; RESP 17; TEMP 98.8
== END 2025-03-18 16:12 | DRG 683 ==
LOC: JER 15:06 → JERBED 19:06 → J6W TELE 03-14 00:15
PROVIDERS: ADMIT Hospitalist; ATTEND Internal Medicine
DX: N17.9 Acute kidney failure, unspecified (principal); L03.115 Cellulitis of right lower limb; M62.82 Rhabdomyolysis; L97.829 Non-pressure chronic ulcer of other part of left lower leg with unspecified severity; L97.919 Non-pressure chronic ulcer of unspecified part of right lower leg with unspecified severity; L03.116 Cellulitis of left lower limb; R55 Syncope and collapse; I12.9 Hypertensive chronic kidney disease with stage 1 through stage 4 chronic kidney disease, or unspecified chronic kidney disease; E11.65 Type 2 diabetes mellitus with hyperglycemia; E78.5 Hyperlipidemia, unspecified; N18.30 Chronic kidney disease, stage 3 unspecified; F10.90 Alcohol use, unspecified, uncomplicated; G25.81 Restless legs syndrome; E03.9 Hypothyroidism, unspecified; R33.9 Retention of urine, unspecified; N40.1 Benign prostatic hyperplasia with lower urinary tract symptoms; K59.00 Constipation, unspecified
CPT/HCPCS: 36415; 70450-TC; 71045-TC-FY; 76775-TC; 80053; 81003; 82550; 82803; 82962; 83735; 83880; 84100; 84439; 84443; 84484; 85025; 85379; 85610; 85730; 86850; 86900; 86901; 87040; 87077; 87086; 87637-QW; 93005; 93010; 93306-TC; 93308; 93970-TC; 97116-GP; 99291; J1644